=== PATIENT | female | born 1950 | race Caucasian/White ===

== ENCOUNTER 2016-05-09 08:57 | Day surgery (SDC) | payer MEDICARE, BC ==
[~2016-05-09 08:57] MED LIST: Lactated Ringers 1,000 ML IV SCH; Sodium Chloride 0.9% 10 ML Syringe FLUSH PRN; ceFAZolin 1 GM in Sodium Chloride 0.9% 50 ML IV ONE
[2016-05-09] MEDS ORDERED: ceFAZolin 1 GM in Sodium Chloride 0.9% 100 ML IV SCH (09:45)
[2016-05-09] MEDS ORDERED: Midazolam 1 MG/ML 5 ML SDV ONE (13:30)
[2016-05-09] MEDS ORDERED: Propofol 200 MG/20 ML SDV ONE (13:30)
[2016-05-09 15:34] VITALS: BP 134/76
--- NOTE | 2016-05-12 20:40 | OR ---
DATE OF OPERATION: PREOPERATIVE DIAGNOSIS: Painful right ankle hardware. POSTOPERATIVE DIAGNOSIS: Painful right ankle hardware. PROCEDURE: Removal of hardware right ankle, lateral malleolus. ANESTHESIA: General. LIME PULLER: Saad Bullard RN. SPECIMENS: None. DRAINS: None. ESTIMATED BLOOD LOSS: Minimal. COMPLICATIONS: None apparent. DESCRIPTION OF PROCEDURE: After informed consent was obtained, the patient was brought to the operating room where a general anesthetic was administered uneventfully. The right ankle was prepped and draped sterilely. A time-out was held and antibiotics were confirmed. The limb was exsanguinated, tourniquet inflated. A straight lateral incision of the previous scar was open sharply and dissection carried out down onto the plate. All of the screws were removed. The plate was removed. There was a small fragment of bone that came out and one of the screw holes which was then impacted back into place. We copiously irrigated and closed with 2-0 Vicryl and rodriguez. Sterile dressings were applied. She was brought to the recovery room in stable condition. ROSELINE/KARINA /[id number]
== END 2016-05-09 15:10 | disposition home or self-care (01) ==
LOC: LB.SDS 08:57
PROVIDERS: ATTEND Orthopaedic Surgery
DX: T84.84XA Pain due to internal orthopedic prosthetic devices, implants and grafts, initial encounter (principal)
CPT/HCPCS: 20680; J0690; J2250; J2704; J7050; J7120